=== PATIENT | female | born 1990 | race Caucasian/White ===

== ENCOUNTER 2021-08-18 19:08 | Outpatient (CLI) | payer MEDICAID ==
[~2021-08-18] VITALS: Ht 160 cm; Wt 103.0 kg
[2021-08-18] MEDS ORDERED: ESCI10TA PO (19:18)
[2021-08-18 19:34] VITALS: BP 133/79
[2021-08-18 19:37] VITALS: BP 133/79
--- NOTE | 2021-08-19 08:20 | Physician Query-Final Dx ---
Clinic Account Progress/Dx Physician Query: Please give diagnosis Please include # weeks gestation Date of Service Aug 18, 2021 at 19:08 VIRAJ,AugAug 19, 2021 08:20
== END 2021-08-18 19:59 | disposition home or self-care (01) ==
LOC: WSo 19:08 → LDRP 19:08 → WSo 19:59
PROVIDERS: ATTEND Obstetrics & Gynecology
DX: O36.8190 Decreased fetal movements, unspecified trimester, not applicable or unspecified (principal); Z3A.00 Weeks of gestation of pregnancy not specified

== ENCOUNTER 2021-09-28 05:50 | Outpatient (CLI) | payer MEDICAID ==
[~2021-09-28] VITALS: Ht 167.7 cm; Wt 102.3 kg
[~2021-09-28 05:50] MED LIST: ESCI10TA PO
[2021-09-29] MEDS ORDERED: PREN-98 PO (15:53)
== END 2021-09-29 16:06 ==
LOC: PREOP 05:50
PROVIDERS: ATTEND Obstetrics & Gynecology
DX: Z01.818 Encounter for other preprocedural examination (principal)

== ENCOUNTER 2021-10-05 06:17 | Inpatient (IN) | payer MEDICAID ==
[~2021-10-05] VITALS: Ht 167.7 cm; Wt 102.1 kg
[2021-10-05] VITALS (11 sets, daily range): BP systolic 100–165; BP diastolic 75–99
[~2021-10-05 06:17] MED LIST changes: +PREN-98 PO
[2021-10-05] MEDS ORDERED: ceFAZolin 2 GM IV Premixed 50 ML IV ONE ×2 (06:30→07:30)
[2021-10-05] MEDS ORDERED: CATHETER FLUSH 10 ML SYR IV PRN (06:45)
[2021-10-05] MEDS ORDERED: FAMOTIDINE 20MG/2ML IV (PEPCID) IV ONE (06:45)
[2021-10-05] MEDS ORDERED: LACTATED RINGERS 1,000 ML IV PRN (06:45)
[2021-10-05] MEDS ORDERED: CITRIC ACID/SOB CIT (BICITRA) 30 ML UDC PO ONE (06:45)
[2021-10-05] MEDS ORDERED: METOCLOPRAMIDE INJ 10 MG/2 ML (REGLAN) IV ONE (06:45)
[2021-10-05] MEDS ORDERED: ceFAZolin 2 GM IV Premixed 50 ML ONE (06:46)
[2021-10-05] MEDS ORDERED: fentaNYL INJ 100 MCG/2 ML AMP ONE (07:01)
[2021-10-05] MEDS ORDERED: OXYTOCIN PRE-MIX DRIP 1,000 ML IV ONE (07:01)
[2021-10-05] MEDS: LACTATED RINGERS 1,000 ML IV PRN ×2 (07:08→07:25)
[2021-10-05 07:11] LABS: BASOPHILS % (AUTO) 0 % (0-10); EOSINOPHILS # (AUTO) 0.2 10^3/uL (0.0-0.3); EOSINOPHILS % (AUTO) 2 % (0-10); HEMATOCRIT 33 % (35-52); LYMPHOCYTES # (AUTO) 1.9 10^3/uL (1.0-4.0); LYMPHOCYTES % (AUTO) 19 % (12-44); MEAN CORPUSCULAR HEMOGLOBIN 26 pg (25-34); MEAN CORPUSCULAR HGB CONC 33 g/dL (32-36); MEAN CORPUSCULAR VOLUME 79 fL (80-99); MEAN PLATELET VOLUME 11.7 fL (9.0-12.2); MONOCYTES # (AUTO) 0.8 10^3/uL (0.0-1.0); MONOCYTES % (AUTO) 9 % (0-12); NEUTROPHILS # (AUTO) 6.9 10^3/uL (1.8-7.8); NEUTROPHILS % (AUTO) 70 % (42-75); PLATELET COUNT 193 10^3/uL (130-400); WHITE BLOOD COUNT 9.9 10^3/uL (4.3-11.0)
--- NOTE | 2021-10-05 07:26 | History & Physical-OB ---
OB - Chief Complaint & HPI Date/Time Date of Admission: Date of Admission: Oct 05, 2021 at 06:17 Date seen by a Provider: Oct 05, 2021 Time Seen by a Provider: 07:15 Chief Complaint/History OB-Reason for Admission/Chief: Section Hx : 3 Hx Para: 1 Expected Date of Delivery: Oct 09, 2021 Gestational Age in Weeks: 39 Gestational Age in Days: 3 Indication for : desires repeat Admission Nurse Assessment Rev: Yes Allergies and Home Medications Allergies Coded Allergies: No Known Drug Allergies (Unverified , 09/29/21) Patient Home Medication List Home Medication List Reviewed: Yes Escitalopram Oxalate (Lexapro) 10 Mg Tablet, 10 MG PO DAILY Prescribed by: ROXANNE ISLAS on 08/18/21 1918 Vit37/Iron/Folic Acid (Prenata Chewable Tablet) 1 Each Tab.chew, 1 EACH PO UD, (Reported) Entered as Reported by: KELTON HARDIN on 09/29/21 0758 OB - History Hx of Present Care: Yes Ultrasounds: Normal mid trimester US Obstetrical Complications: None Medical Complications: None Patient Past Medical History n/a Social History/Family History 2nd Hand Smoke Exposure: No OB - Admission Exam Physical Exam HEENT: NCAT Heart: Rhythm Normal Lungs: Clear Abdomen: Gravid Extremities: Normal Reflexes: Normal Membranes: Intact Heart Rate: 130's Accelerations: Accelerations Present Decelerations: No Decelerations Short Term Variability: Present Senior Care Variability: Average (6-25) Contractions on Admission: >10 Minutes Apart Intensity: Mild Labs Laboratory Tests Test 10/05/21 07:00 Range/Units White Blood Count 9.9 4.3-11.0 10^3/uL Red Blood Count 4.19 3.80-5.11 10^6/uL Hemoglobin 11.0 L 11.5-16.0 g/dL Hematocrit 33 L 35-52 % Mean Corpuscular Volume 79 L 80-99 fL Mean Corpuscular Hemoglobin 26 25-34 pg Mean Corpuscular Hemoglobin Concent 33 32-36 g/dL Red Cell Distribution Width 14.8 H 10.0-14.5 % Platelet Count 193 130-400 10^3/uL Mean Platelet Volume 11.7 9.0-12.2 fL Immature Granulocyte % (Auto) 0 % Neutrophils (%) (Auto) 70 42-75 % Lymphocytes (%) (Auto) 19 12-44 % Monocytes (%) (Auto) 9 0-12 % Eosinophils (%) (Auto) 2 0-10 % Basophils (%) (Auto) 0 0-10 % Neutrophils # (Auto) 6.9 1.8-7.8 10^3/uL Lymphocytes # (Auto) 1.9 1.0-4.0 10^3/uL Monocytes # (Auto) 0.8 0.0-1.0 10^3/uL Eosinophils # (Auto) 0.2 0.0-0.3 10^3/uL Basophils # (Auto) 0.0 0.0-0.1 10^3/uL Immature Granulocyte # (Auto) 0.0 0.0-0.1 10^3/uL OB - Assessment/Plan/Diagnosis Assessment Assessment: section Admission Dx 31 yo @ 39.3 Previous GBS neg Admission Status: Inpatient Order (span 2 midnights) Reason for Inpatient Admission: Repeat Plan Plan: Section SHOLA MEZA DO Oct 05, 2021 07:26
[2021-10-05] MEDS ORDERED: TETANUS,DIPTH,PERTUSS P/F (BOOSTRIX) 0.5 ML VIAL IM SCH (07:30)
[2021-10-05] MEDS ORDERED: NALOXONE 0.4 MG/ML 1 ML (NARCAN) VIAL IV PRN (07:30)
[2021-10-05] MEDS ORDERED: MEASLES,MUMPS,RUBELLA 1 EA INJ SC SCH (07:30)
[2021-10-05] MEDS ORDERED: ONDANSETRON 4 MG/2 ML (SDV) Z0FRAN IVP PRN (07:30)
--- NOTE | 2021-10-05 07:32 | Discharge Inst-Women's Service ---
Discharge Inst-Women's Serv Depart Medication/Instructions New, Converted or Re-Newed RX: Transmitted to Pharmacy Final Diagnosis POD 2 RLTCS Problems Reviewed?: Yes Consults/Follow Up Additional Follow Up: Yes Orders/Referrals Dr. Smith in 7-10 days and in 6 weeks Activity Activity: Activity as Tolerated Driving Instructions: No Driving for 1 Week NO SMOKING: NO SMOKING Nothing Inside Vagina: No Douching, No [place], No Tampons Diet Discharge Diet: No Restrictions Symptoms to Report to : Bleeding Excessive, Pain Increased, Fever Over 101 Degrees F, Vaginal Bleeding Increase, Questions/Concerns For Any Problems or Questions: Contact Your Physician Skin/Wound Care Infection Signs and Symptoms: Increased Redness, Foul Odor of Wound, Increased Drainage, Skin Itchy or Has a Rash, Increased Swelling, Temperature Above 101 F Operative Area Clean and Dry: Keep Incision Clean/Dry Stitches/Noble/Dermabond: Dermabond, Care of Stitches Bathing Instructions: SHOLA Enriquez DO Oct 05, 2021 07:32
[2021-10-05] MEDS ORDERED: IBUP-844 PO (07:33)
[2021-10-05] MEDS ORDERED: DOCU100C37 PO (07:33)
[2021-10-05] MEDS ORDERED: ACHD5005 PO (07:33)
[2021-10-05] MEDS ORDERED: BUPIVACAINE 0.5% 30 ML (SENSORCAINE) VIAL ONE (08:02)
[2021-10-05] MEDS ORDERED: KETOROLAC 30 MG/ML VIAL ONE (09:01)
[2021-10-05] MEDS: KETOROLAC 30 MG/ML VIAL IV SCH ×3 (09:02→21:02)
[2021-10-05] MEDS: OXYTOCIN PRE-MIX DRIP 500 ML IV SCH ×2 (10:27→11:30)
[2021-10-05] MEDS: DOCUSATE SODIUM 100 MG (COLACE) CAP PO SCH ×2 (10:35→21:01)
[2021-10-05] MEDS: HYDROcodone/APAP 5 MG/325 MG (LORTAB) TAB PO PRN ×2 (11:51→18:27)
--- NOTE | 2021-10-05 13:18 | OPERATIVE REPORT ---
DATE OF SERVICE: PREOPERATIVE DIAGNOSES: 1. A 31-year-old G3, P1 at 39 weeks and 3 days' gestation. 2. Previous section. POSTOPERATIVE DIAGNOSIS: 1. A 31-year-old G3, P1 at 39 weeks and 3 days' gestation. 2. Previous section. PROCEDURE: Repeat low transverse section. SURGEON: Papo Meza DO COSMETIC SALES: Yanira Moody DNP, was necessary for manipulation throughout the procedure. ANESTHESIA: Spinal. ESTIMATED BLOOD LOSS: 500 mL. URINE OUTPUT: 25 mL clear at the end of the procedure. FLUIDS: 2200 mL of lactated Ringer's solution. FINDINGS: A live male weighing 7 pounds 4 ounces, Apgars of 7 and 8. Grossly normal appearing uterus, bilateral fallopian tubes and ovaries. SPECIMEN SENT: None. INDICATIONS FOR PROCEDURE: This 31-year-old female is a patient who had sought third trimester care in my office. Her first portion of her care was done in [place]. Upon transfer to my office, she had planned for repeat in the period and preoperative period. We discussed all the risks involved with . In the preoperative area, we discussed the risk of bleeding, infection, damaging surrounding structures including, but not limited to bowel, bladder, ureter, kidneys, possible need for reoperation, postoperative complications that may occur, risk from anesthesia, recovery timeframe, hospital stay and even . After everything was discussed with the patient in detail, consent was obtained in the preoperative area and the patient was taken to the operating room. OPERATIVE REPORT IN DETAIL: Once in the operating room, spinal analgesia was found to be adequate. She was placed in supine position with leftward tilt, prepped and draped in normal sterile fashion. Timeout was performed and anesthesia was tested. I then make a Pfannenstiel skin incision with a knife and carried down to underlying fascia using Bovie cautery. The fascial incision was extended laterally using Bovie cautery. Superior aspect of fascial incision was then grasped with Lisa clamps, tented up and dissected off the underlying rectus muscles. The inferior aspect of fascial incision was then grasped with Lisa clamps, tented up and dissected off the underlying rectus muscles. Rectus muscles were dissected down the midline using sharp dissection, which exposed the peritoneum, which I entered bluntly and extended using blunt traction. Xavier ring retractor was placed in the peritoneal incision, which offers excellent lateral sidewall retraction. I identified the lower uterine segment, which was found to be thinned out and make a low transverse incision to the vesicouterine peritoneum and bluntly dissected off the lower uterine segment, creating a bladder flap. I then proceeded with my myotomy until membranes were visualized, at which point I extended the uterine incision laterally and superiorly using bandage scissors. Amniotomy was performed in the process of doing this, clear fluid was noted. The was found in the vertex presentation. With gentle fundal pressure, the 's head was elevated up to the incision where the nares and oropharynx were bulb suctioned. Nuchal cord was reduced x1. Anterior and posterior shoulders were delivered. was then brought to the operative field with cord doubly clamped and cut and was handed off to waiting nurses in attendance. Cord blood was collected, 3-vessel cord with intact placenta was delivered spontaneously thereafter. IV Pitocin was initiated to facilitate uterine contraction. Uterine fundus confirmed by manual massage. Uterus was then exteriorized and cleared of all endometrial clots and debris. I then proceeded with closing the uterine incision using 0 Vicryl suture in running locked fashion. Second layer of imbricating 0 Monocryl was placed. Excellent hemostasis was noted after doing this. I then placed the uterus back in the pelvis and copiously irrigated the pelvis using normal saline. Once again, there was no active bleeding noted from any of my dissection planes. I placed Interceed antiadhesive over my low transverse incision. I removed the Xavier ring retractor and proceeded with closing the peritoneum using 3-0 Vicryl suture in a running fashion. The rectus muscle reapproximated using 3-0 Vicryl suture in interrupted fashion. The fascia was reapproximated using 0 Vicryl suture in running fashion. Subcutaneous tissue was reapproximated using 3-0 plain interrupted subcutaneous stitch and skin was reapproximated using 4-0 Monocryl in a running subcuticular. Dermabond was applied to incision and sterile dressing with adhesive white tape. The patient tolerated the procedure well and sent to recovery area in stable condition. Lap and sponge counts were correct at the end of the procedure. Instrument counts correct as well. Two grams of Ancef were given preoperatively for infection prophylaxis. Job ID: [id number] DocumentID: [id number] Dictated Date: 10/05/2021 08:38:41 Transmissions Systems Operator Date: 10/05/2021 13:17:27 Dictated By: PAPO MEZA DO
[2021-10-05] MEDS: CATHETER FLUSH 10 ML SYR IV SCH ×2 (14:09→21:02)
[2021-10-06 00:05] VITALS: BP 126/77
[2021-10-06] MEDS: HYDROcodone/APAP 5 MG/325 MG (LORTAB) TAB PO PRN ×5 (00:05→20:16)
[2021-10-06] MEDS ORDERED: CALCIUM CARBONATE 500 MG (TUMS) TAB.CHEW ONE (02:26)
[2021-10-06] MEDS ORDERED: CALCIUM CARBONATE 500 MG (TUMS) TAB.CHEW PO PRN (02:30)
[2021-10-06 03:51] VITALS: BP 140/81
[2021-10-06] MEDS: KETOROLAC 30 MG/ML VIAL IV SCH (03:51)
[2021-10-06] MEDS: CATHETER FLUSH 10 ML SYR IV SCH (03:52)
[2021-10-06 07:19] LABS: BASOPHILS % (AUTO) 0 % (0-10); EOSINOPHILS # (AUTO) 0.2 10^3/uL (0.0-0.3); EOSINOPHILS % (AUTO) 2 % (0-10); HEMATOCRIT 30 % (35-52); HEMOGLOBIN 9.9 g/dL (11.5-16.0); LYMPHOCYTES # (AUTO) 1.9 10^3/uL (1.0-4.0); LYMPHOCYTES % (AUTO) 19 % (12-44); MEAN CORPUSCULAR HEMOGLOBIN 26 pg (25-34); MEAN CORPUSCULAR HGB CONC 33 g/dL (32-36); MEAN CORPUSCULAR VOLUME 80 fL (80-99); MEAN PLATELET VOLUME 11.4 fL (9.0-12.2); MONOCYTES # (AUTO) 0.7 10^3/uL (0.0-1.0); MONOCYTES % (AUTO) 7 % (0-12); NEUTROPHILS # (AUTO) 7.2 10^3/uL (1.8-7.8); NEUTROPHILS % (AUTO) 72 % (42-75); PLATELET COUNT 187 10^3/uL (130-400)
[2021-10-06 09:30] VITALS: BP 130/86
[2021-10-06] MEDS ORDERED: IBUPROFEN 600 MG (MOTRIN) TAB PO ONE (09:31)
[2021-10-06] MEDS: IBUPROFEN 600 MG (MOTRIN) TAB PO SCH ×3 (09:34→20:16)
[2021-10-06] MEDS: DOCUSATE SODIUM 100 MG (COLACE) CAP PO SCH ×2 (09:34→20:16)
--- NOTE | 2021-10-06 09:39 | Anesthesia-Regional Post-Op ---
Regional Patient Condition Mental Status: Alert, Oriented x3 Circulation: Same as Pre-Op Headache: Absent Sensation: Full Recovery Motor Block: Absent Post Op Complications Complications None Follow Up Care/Instructions Patient Instructions None needed. Anesthesia/Patient Condition Patient is doing well, no complaints, stable vital signs, no apparent adverse anesthesia problems. No complications reported per nursing. GILBERTO PETERS CRNA Oct 06, 2021 09:39
--- NOTE | 2021-10-06 10:40 | Postpartum Progress Note ---
Note Note Day # 1 Subjective: Patient is without complaints. Ambulating, voiding. Tolerating a regular diet without nausea or vomiting. Normal lochia. Pain is well controlled with oral pain medications. Objective: Physical Exam: General - Alert and oriented, no apparent distress Abdomen - Soft, appropriately tender to palpation, non-distended, fundus firm at umbilicus; incision c/d/i Extremities - no edema, negative Karla's bilaterally Assessment: Post- day # 1, status post RLTCS. Recovering well, hemodynamically stable Acute blood loss anemia Plan: Routine care. Encourage breast feeding. Encourage ambulation. Ferrous sulfate supplementation. Plan for discharge tomorrow Vitals - Labs Vital Signs - I&O Vital Signs Date Time Temp Pulse Resp B/P (MAP) Pulse Ox O2 Delivery O2 Flow Rate FiO2 10/06/21 09:30 36.5 97 18 130/86 (101) 99 Room Air 10/06/21 03:51 36.6 98 18 140/81 (100) 97 Room Air 10/06/21 00:05 36.4 86 18 126/77 (93) 99 Room Air 10/05/21 21:00 36.4 84 18 134/82 (99) 99 Room Air 10/05/21 16:08 36.1 94 18 134/86 (102) 98 Room Air 10/05/21 11:52 36.5 94 18 135/75 (95) 98 Room Air I & O 10/06/21 07:00 Intake Total 4050 ml Output Total 2945 ml Balance 1105 ml Labs Laboratory Tests 10/06/21 07:02: White Blood Count 10.0, Red Blood Count 3.78L, Hemoglobin 9.9L, Hematocrit 30L, Mean Corpuscular Volume 80, Mean Corpuscular Hemoglobin 26, Mean Corpuscular He moglobin Concent 33, Red Cell Distribution Width 15.0H, Platelet Count 187, Mean Platelet Volume 11.4, Immature Granulocyte % (Auto) 0, Neutrophils (%) (Auto) 72, Lymphocytes (%) (Auto) 19, Monocytes (%) (Auto) 7, Eosinophils (%) (Auto) 2, Basophils (%) (Auto) 0, Neutrophils # (Auto) 7.2, Lymphocytes # (Auto) 1.9, Monocytes # (Auto) 0.7, Eosinophils # (Auto) 0.2, Basophils # (Auto) 0.0, Immature Granulocyte # (Auto) 0.0 ROSE QUEVEDO APRN Oct 06, 2021 10:40
[2021-10-06 15:00] VITALS: BP 117/75
[2021-10-06 20:18] VITALS: BP 135/93
[2021-10-07 02:05] VITALS: BP 129/89
[2021-10-07] MEDS: IBUPROFEN 600 MG (MOTRIN) TAB PO SCH ×2 (02:05→08:36)
[2021-10-07] MEDS: HYDROcodone/APAP 5 MG/325 MG (LORTAB) TAB PO PRN ×2 (02:06→08:36)
--- NOTE | 2021-10-07 08:11 | Postpartum Progress Note ---
Note Note Day # 2 Subjective: Patient is without complaints. Ambulating, voiding. Tolerating a regular diet without nausea or vomiting. Normal lochia. Pain is well controlled with oral pain medications. Objective: Physical Exam: General - Alert and oriented, no apparent distress Abdomen - Soft, appropriately tender to palpation, non-distended, fundus firm at umbilicus Extremities - no edema, negative Karla's bilaterally Assessment: POD 2 RLTCS Plan: Routine care. Encourage breast feeding. Encourage ambulation. Ferrous sulfate supplementation. Plan for discharge today Vitals - Labs Vital Signs - I&O Vital Signs Date Time Temp Pulse Resp B/P (MAP) Pulse Ox O2 Delivery O2 Flow Rate FiO2 10/07/21 02:05 36.4 89 18 129/89 (102) 98 Room Air 10/06/21 20:18 36.0 99 18 135/93 (107) 98 Room Air 10/06/21 15:00 36.1 91 18 117/75 (89) 100 Room Air 10/06/21 09:30 36.5 97 18 130/86 (101) 99 Room Air I & O 10/07/21 07:00 Intake Total 1000 ml Balance 1000 ml SHOLA MEZA DO Oct 07, 2021 08:11
[2021-10-07 08:32] VITALS: BP 136/90
[2021-10-07] MEDS: DOCUSATE SODIUM 100 MG (COLACE) CAP PO SCH (08:36)
[2021-10-07] MEDS ORDERED: ESCI-2 PO (13:19)
== END 2021-10-07 13:05 | disposition home or self-care (01) | DRG 787 ==
LOC: LDRP 06:17
PROVIDERS: ADMIT Obstetrics & Gynecology; ATTEND Obstetrics & Gynecology
PROC: 10D00Z1 Extraction of Products of Conception, Low, Open Approach (ICD-10-PCS; principal; 2021-10-05 07:25)
DX: O34.211 Maternal care for low transverse scar from previous cesarean delivery (principal); D62 Acute posthemorrhagic anemia; O90.81 Anemia of the puerperium; O69.81X0 Labor and delivery complicated by cord around neck, without compression, not applicable or unspecified; Z37.0 Single live birth; Z3A.39 39 weeks gestation of pregnancy
CPT/HCPCS: 36415; 83033; 85025; 86850; 86900; 86901

== ENCOUNTER 2021-10-14 19:32 | Emergency (ER) | payer MEDICAID ==
[~2021-10-14 19:32] MED LIST changes: +ACHD5005 PO; +DOCU100C37 PO; +ESCI-2 PO; +IBUP-844 PO
[2021-10-14] MEDS ORDERED: LACTATED RINGERS 1,000 ML IV ONE ×2 (20:15→21:15)
--- NOTE | 2021-10-14 20:23 | ED GI ---
General Chief Complaint: COVID19 Suspect/Confirmed Stated Complaint: FEVER - CHILLS - HEADACHE - DIARRHEA Source of Information: Patient Exam Limitations: No Limitations History of Present Illness Date Seen by Provider: Oct 14, 2021 Time Seen by Provider: 19:45 Initial Comments Patient to ER by private conveyance for chief complaint of malaise, fever, diarrhea, body aches. She has not been vaccinated for COVID. She thinks she got a flu vaccine last year. She is also concerned because her child are developing symptoms. She delivered on the by . This is her second . She had no abdominal surgeries. She has not taken anything yet for her diarrhea because yesterday she thought maybe is because of the Colace she was on. She stopped the Colace and her diarrhea persisted. She been using Tylenol and Motrin with her last dose about 3 hours ago of ibuprofen. She is not having nausea or vomiting. Otherwise unremarkable medical history. What brought her in tonight was that she was getting dizzy and lightheaded feeling like she would pass out whenever she stood up. She has not had any syncopal episodes yet. Allergies and Home Medications Allergies Coded Allergies: No Known Drug Allergies (Unverified , 09/29/21) Patient Home Medication List Home Medication List Reviewed: Yes Docusate Sodium (Docusate Sodium) 100 Mg Capsule, 100 MG PO BID PRN for CONSTIPATION-1ST LINE Prescribed by: SHOLA MEZA on 10/05/21 0733 Escitalopram Oxalate (Escitalopram Oxalate) 10 Mg Tablet, 10 MG PO DAILY Prescribed by: SHOLA MEZA on 10/07/21 1319 Hydrocodone Bit/Acetaminophen (HYDROcodone/APAP 5 MG/325 MG TAB) 1 Tab Tab, 1-2 EA PO Q6HR PRN for PAIN-MODERATE (5-7) Prescribed by: SHOLA MEZA on 10/05/21 0734 Ibuprofen (Ibu) 600 Mg Tablet, 600 MG PO Q6HR Prescribed by: SHOLA MEZA on 10/05/21 0733 Vit37/Iron/Folic Acid (Prenata Chewable Tablet) 1 Each Tab.chew, 1 EACH PO UD, (Reported) Entered as Reported by: KELTON HARDIN on 09/29/21 0383 Review of Systems Review of Systems Constitutional: chills, dizziness, fever, malaise EENTM: No Blurred Vision, No Double Vision Respiratory: Denies Cough, Denies Shortness of Air Cardiovascular: Denies Chest Pain, Denies Lightheadedness Gastrointestinal: See HPI; Denies Abdomen Distended, Denies Abdominal Pain, Denies Constipated; Diarrhea; Denies Nausea; Poor Fluid Intake Genitourinary: Denies Burning, Denies Discharge Musculoskeletal: No back pain, No joint pain All Other Systems Reviewed Negative Unless Noted: Yes Past Kxxfjqd-Pycagu-Tuacgn Hx Patient Social History Tobacco Use?: No Use of E-Cig and/or Vaping dev: No Past Medical History Surgeries: Yes Respiratory: No Currently Using CPAP: No Currently Using BIPAP: No Cardiac: No Neurological: No Genitourinary: No Gastrointestinal: No Musculoskeletal: No Endocrine: No HEENT: No Cancer: No Psychosocial: Yes Anxiety, Depression Integumentary: No Physical Exam Vital Signs Vital Signs - First Documented 10/14/21 19:50 Temp 37.3 Pulse 120 Resp 20 B/P (MAP) 136/84 (101) Pulse Ox 98 O2 Delivery Room Air Capillary Refill : Height/Weight/BMI Height: '" Weight: lbs. oz. kg; 36.30 BMI Method: General Appearance: WD/WN, mild distress HEENT: PERRL/EOMI, pharynx normal Neck: full range of motion, supple Respiratory: lungs clear, normal breath sounds, no respiratory distress, no accessory muscle use Cardiovascular: normal peripheral pulses, regular rate, rhythm, tachycardia (130) Peripheral Pulses: 2+ Radial Pulses (R), 2+ Radial Pulses (L) Gastrointestinal: normal bowel sounds, non tender, soft Neurologic/Psychiatric: alert, oriented x 3 Skin: normal color, warm/dry Progress/Results/Core Measures Results/Orders Lab Results Laboratory Tests Test 10/14/21 20:02 10/14/21 20:20 Range/Units Influenza Type A (RT-PCR) Not Detected Not Detecte Influenza Type B (RT-PCR) Not Detected Not Detecte SARS-CoV-2 RNA (RT-PCR) Not Detected Not Detecte White Blood Count 22.1 H 4.3-11.0 10^3/uL Red Blood Count 4.23 3.80-5.11 10^6/uL Hemoglobin 10.9 L 11.5-16.0 g/dL Hematocrit 34 L 35-52 % Mean Corpuscular Volume 81 80-99 fL Mean Corpuscular Hemoglobin 26 25-34 pg Mean Corpuscular Hemoglobin Concent 32 32-36 g/dL Red Cell Distribution Width 14.5 10.0-14.5 % Platelet Count 304 130-400 10^3/uL Mean Platelet Volume 9.9 9.0-12.2 fL Immature Granulocyte % (Auto) 1 % Neutrophils (%) (Auto) 92 H 42-75 % Lymphocytes (%) (Auto) 3 L 12-44 % Monocytes (%) (Auto) 4 0-12 % Eosinophils (%) (Auto) 0 0-10 % Basophils (%) (Auto) 0 0-10 % Neutrophils # (Auto) 20.4 H 1.8-7.8 10^3/uL Lymphocytes # (Auto) 0.7 L 1.0-4.0 10^3/uL Monocytes # (Auto) 0.8 0.0-1.0 10^3/uL Eosinophils # (Auto) 0.0 0.0-0.3 10^3/uL Basophils # (Auto) 0.0 0.0-0.1 10^3/uL Immature Granulocyte # (Auto) 0.2 H 0.0-0.1 10^3/uL Neutrophils % (Manual) 96 % Lymphocytes % (Manual) 2 % Monocytes % (Manual) 2 % Blood Morphology Comment NORMAL Sodium Level 139 135-145 MMOL/L Potassium Level 3.5 L 3.6-5.0 MMOL/L Chloride Level 108 H 98-107 MMOL/L Carbon Dioxide Level 17 L 21-32 MMOL/L Anion Gap 14 5-14 MMOL/L Blood Urea Nitrogen 13 7-18 MG/DL Creatinine 0.72 0.60-1.30 MG/DL Estimat Glomerular Filtration Rate 116 BUN/Creatinine Ratio 18 Glucose Level 117 H 70-105 MG/DL Calcium Level 8.9 8.5-10.1 MG/DL Corrected Calcium 9.1 8.5-10.1 MG/DL Total Bilirubin 0.5 0.1-1.0 MG/DL Aspartate Amino Transf (AST/SGOT) 13 5-34 U/L Alanine Aminotransferase (ALT/SGPT) 11 0-55 U/L Alkaline Phosphatase 103 40-136 U/L C-Reactive Protein High Sensitivity 11.81 H 0.00-0.50 MG/DL Total Protein 7.1 6.4-8.2 GM/DL Albumin 3.7 3.2-4.5 GM/DL Procalcitonin 0.13 H <0.10 NG/ML My Orders Orders - AGA KAMINSKI Influenza A And B By Pcr (10/14/21 20:02) Covid 19 Inhouse Test (10/14/21 20:02) Cbc With Automated Diff (10/14/21 20:02) Comprehensive Metabolic Panel (10/14/21 20:02) Hs C Reactive Protein (10/14/21 20:02) Ed Iv/Invasive Line Start (10/14/21 20:02) Lactated Ringers (Lr 1000 Ml Iv Solution (10/14/21 20:15) Orthostatic Vital Signs (Adult (10/14/21 20:02) Manual Differential (10/14/21 20:20) Ct Abdomen/Pelvis W (10/14/21 21:07) Ed Iv/Invasive Line Start (10/14/21 21:07) Lactated Ringers (Lr 1000 Ml Iv Solution (10/14/21 21:15) Procalcitonin (Pct) (10/14/21 21:12) Iohexol Injection (Omnipaque 350 Mg/Ml 1 (10/14/21 21:30) Received Contrast (Hold Metformin- Contr (10/14/21 21:30) Sodium Chloride Flush (Catheter Flush Sy (10/14/21 21:30) Ns (Ivpb) (Sodium Chloride 0.9% Ivpb Bag (10/14/21 21:30) Medications Given in ED Current Medications Medications Dose Ordered Sig/Gaston Route Start Time Stop Time Status Last Admin Dose Admin Iohexol 100 ml ONCE ONCE IV 10/14/21 21:30 10/14/21 21:31 DC 10/14/21 21:27 100 ML Lactated Ringer's 1,000 ml @ 0 mls/hr Q0M ONCE IV 10/14/21 20:15 10/14/21 20:16 DC 10/14/21 20:23 999 MLS/HR Sodium Chloride 10 ml NEEDED PRN IV 10/14/21 21:30 10/14/21 21:27 10 ML Sodium Chloride 100 ml ONCE ONCE IV 10/14/21 21:30 10/14/21 21:31 DC 10/14/21 21:27 80 ML Vital Signs/I&O 10/14/21 10/14/21 19:50 20:37 Temp 37.3 Pulse 120 108 118 123 Resp 20 B/P (MAP) 136/84 (101) 121/75 (90) 129/76 (93) 122/75 (91) Pulse Ox 98 O2 Delivery Room Air Progress Progress Note #1: Time: 20:23 Progress Note Sinus tachycardia likely due to volume depletion secondary to diarrhea most likely from a virus. We will swab her for Covid and flu give her a liter of fluids check some basic labs and do a set of orthostatics and reexamine her. Progress Note #2: Time: 21:08 Progress Note Patient got about 500 cc of fluids and and is no longer feeling woozy. She is feeling better in terms of her dizziness. Statistically she likely has a viral colitis. We discussed this with her and despite her leukocytosis but hold off on antibiotics. Plan to get a CT of her abdomen and pelvis with IV contrast just to evaluate and if this is okay and a second liter of fluids are in and she is feeling better we will let her go home with instructions to start taking Imodium. Return precautions discussed. Patient is okay with this plan. Diagnostic Imaging Diagonstic Imaging: CT Plain Films/CT/US/NM/MRI: abdomen, pelvis Comments [facility], [place] NAME: FELI CASTANO [facility] REC#: [id number] PT STATUS: REG ER : 1990 PHYSICIAN: AGA KAMINSKI MD ADMIT DATE: 10/14/21/ER Signed Date of Exam:10/14/21 CT ABDOMEN/PELVIS W PROCEDURE: CT abdomen and pelvis with contrast. TECHNIQUE: Multiple contiguous axial images were obtained through the abdomen and pelvis after administration of intravenous contrast. Auto Exposure Controls were utilized during the CT exam to meet ALARA standards for radiation dose reduction. All CT scans use one or more of the following dose optimizing techniques: automated exposure control, MA and/or KvP adjustment based on patient size and exam type or iterative reconstruction. INDICATION: Diarrhea and leukocytosis. COMPARISON: No comparison available. FINDINGS: The lung bases demonstrate no consolidation. There is no effusion. There is no pleural collection. The liver demonstrates no focal abnormality. The gallbladder is nondistended. There are no radiodense gallstones. The portal veins appear patent. There is no biliary dilatation. The pancreas is unremarkable. The spleen unremarkable. There is no adrenal mass. Kidneys enhance normally and are nonobstructed. The stomach is nondistended. There are scattered fluid-filled loops of nondilated small bowel. No abnormal bowel dilation is demonstrated. The colon is decompressed. There is a small to moderate degree of stool within the colon. The appendix is not identified but there are no inflammatory changes evident within the right lower quadrant to suggest an appendicitis. The bladder is unremarkable. The uterus is enlarged compatible with recent gravid state. There is low density demonstrated throughout the endometrial canal which could reflect a post gravid state or blood products. There is no adnexal mass. There are no findings of hemoperitoneum or free fluid. There is no focal inflammation within the omentum or mesentery. Aorta is normal in caliber. There is no acute osseous abnormality. IMPRESSION: 1. A few fluid-filled loops of nondilated small bowel which could be secondary to an enteritis. Colon is decompressed. There is no focal inflammation within the omentum or mesentery or findings to suggest an appendicitis. There is no free fluid or abscess. 2. Enlarged appearance of the uterus with prominent endometrial canal compatible with recent gravid state. Residual blood within the endometrial canal could not be excluded. Correlate for ongoing vaginal bleeding. 3. Otherwise unremarkable CT appearance of the abdomen and pelvis. Dictated by: Dictated on workstation # [id number] Dict: 10/14/212130 Trans: 10/14/212147 [facility] [id number] Interpreted by: MEERA NIELSON MD Electronically signed by: MEERA NIELSON MD 10/14/212147 Reviewed: Reviewed by Me Departure Impression Primary Impression: Gastroenteritis/colitis, infectious Disposition: HOME, SELF-CARE Condition: Stable Departure-Patient Inst. Decision time for Depature: 22:02 Referrals: KIM CHASE MD (PCP/Family) Primary Care Physician Patient Instructions: Colitis (DC) Add. Discharge Instructions: Drink plenty of fluids. Zofran 1 tablet every 6 hours necessary for nausea. Imodium 2 tablets followed by 1 tablet every 4 hours afterwards but were still having loose, watery stools. Return to ER for dehydration or other worrisome symptoms. Follow-up with your primary care doctor as necessary. Expect see resolution of symptoms in 5 to 7 days. All discharge instructions reviewed with patient and/or family. Voiced understanding. Scripts Ondansetron (Ondansetron Odt) 4 Mg Tab.rapdis 4 MG PO Q6H PRN for NAUSEA/VOMITING, #8 TAB 0 Refills Prov: AGA KAMINSKI 10/14/21 AGA KAMINSKI Oct 14, 2021 20:23
[2021-10-14 20:29] LABS: BASOPHILS % (AUTO) 0 % (0-10); EOSINOPHILS % (AUTO) 0 % (0-10); HEMATOCRIT 34 % (35-52); HEMOGLOBIN 10.9 g/dL (11.5-16.0); LYMPHOCYTES # (AUTO) 0.7 10^3/uL (1.0-4.0); LYMPHOCYTES % (AUTO) 3 % (12-44); MEAN CORPUSCULAR HEMOGLOBIN 26 pg (25-34); MEAN CORPUSCULAR HGB CONC 32 g/dL (32-36); MEAN CORPUSCULAR VOLUME 81 fL (80-99); MEAN PLATELET VOLUME 9.9 fL (9.0-12.2); MONOCYTES # (AUTO) 0.8 10^3/uL (0.0-1.0); MONOCYTES % (AUTO) 4 % (0-12); NEUTROPHILS # (AUTO) 20.4 10^3/uL (1.8-7.8); NEUTROPHILS % (AUTO) 92 % (42-75); PLATELET COUNT 304 10^3/uL (130-400); WHITE BLOOD COUNT 22.1 10^3/uL (4.3-11.0)
[2021-10-14 20:37] VITALS: BP_SYST 121; BP_SYST 122; BP_SYST 129; BP_DIAS 75; BP_DIAS 76
[2021-10-14 20:51] LABS: ALBUMIN 3.7 GM/DL (3.2-4.5); BILIRUBIN,TOTAL 0.5 MG/DL (0.1-1.0); CALCIUM 8.9 MG/DL (8.5-10.1); CREATININE SERUM 0.72 MG/DL (0.60-1.30); POTASSIUM 3.5 MMOL/L (3.6-5.0); TOTAL PROTEIN 7.1 GM/DL (6.4-8.2)
[2021-10-14 20:55] LABS: LYMPHOCYTES % (MANUAL) 2 %; MONOCYTES % (MANUAL) 2 %; NEUTROPHILS % (MANUAL) 96 %; RBC MORPH NORMAL
[2021-10-14] MEDS ORDERED: NS 100 ML (IVPB) BAG IV ONE (21:30)
[2021-10-14] MEDS ORDERED: CATHETER FLUSH 10 ML SYR IV PRN (21:30)
[2021-10-14] MEDS ORDERED: IOHEXOL 350 MG/ML 100 ML (OMNIPAQUE 350) VIAL IV ONE (21:30)
[2021-10-14] MEDS ORDERED: HOLD METFORMIN - RECEIVED CONTRAST 20 ML VIAL IV SCH (21:30)
--- NOTE | 2021-10-14 21:46 | Diagnostic Imaging Report ---
PROCEDURE: CT abdomen and pelvis with contrast. TECHNIQUE: Multiple contiguous axial images were obtained through the abdomen and pelvis after administration of intravenous contrast. Auto Exposure Controls were utilized during the CT exam to meet ALARA standards for radiation dose reduction. All CT scans use one or more of the following dose optimizing techniques: automated exposure control, MA and/or KvP adjustment based on patient size and exam type or iterative reconstruction. INDICATION: Diarrhea and leukocytosis. COMPARISON: No comparison available. FINDINGS: The lung bases demonstrate no consolidation. There is no effusion. There is no pleural collection. The liver demonstrates no focal abnormality. The gallbladder is nondistended. There are no radiodense gallstones. The portal veins appear patent. There is no biliary dilatation. The pancreas is unremarkable. The spleen unremarkable. There is no adrenal mass. Kidneys enhance normally and are nonobstructed. The stomach is nondistended. There are scattered fluid-filled loops of nondilated small bowel. No abnormal bowel dilation is demonstrated. The colon is decompressed. There is a small to moderate degree of stool within the colon. The appendix is not identified but there are no inflammatory changes evident within the right lower quadrant to suggest an appendicitis. The bladder is unremarkable. The uterus is enlarged compatible with recent gravid state. There is low density demonstrated throughout the endometrial canal which could reflect a post gravid state or blood products. There is no adnexal mass. There are no findings of hemoperitoneum or free fluid. There is no focal inflammation within the omentum or mesentery. Aorta is normal in caliber. There is no acute osseous abnormality. IMPRESSION: 1. A few fluid-filled loops of nondilated small bowel which could be secondary to an enteritis. Colon is decompressed. There is no focal inflammation within the omentum or mesentery or findings to suggest an appendicitis. There is no free fluid or abscess. 2. Enlarged appearance of the uterus with prominent endometrial canal compatible with recent gravid state. Residual blood within the endometrial canal could not be excluded. Correlate for ongoing vaginal bleeding. 3. Otherwise unremarkable CT appearance of the abdomen and pelvis. Dictated by: Dictated on workstation # [id number]
[2021-10-14] MEDS ORDERED: ONDA4TAB11 PO (22:03)
== END 2021-10-14 22:20 | disposition home or self-care (01) ==
LOC: EDUNIT# 19:32 → ER 19:33
DX: K52.9 Noninfective gastroenteritis and colitis, unspecified (principal); Z20.822 Contact with and (suspected) exposure to COVID-19
CPT/HCPCS: 36415; 74177; 80053; 84145; 85007; 85025; 85027; 86141; 87636